=== PATIENT | female | born 1975 | race Caucasian/White ===

== ENCOUNTER → 2018-09-14 | Outpatient (CLI) | payer BC ==
[~2018-09-14] MED LIST: ACE3; ACE3 PO; CARB-91 PO; IBU600 PO; IBU800 PO; IRON1TAB55 PO; PREN-161 PO
--- NOTE | 2018-09-17 13:49 | RADIOLOGY IMAGING REPORT ---
FACILITY: [facility] PATIENT NAME: NICCI CORNELIUS : [id number] MR: [id number] V: [id number] EXAM DATE: ORDERING PHYSICIAN: RYAN TILLMAN TECHNOLOGIST: Betsy Hammer PROCEDURE: BILATERAL DIGITAL SCREENING MAMMOGRAM WITH CAD ASSISTED INTERPRETATION & 3D TOMOSYNTHESIS REASON FOR STUDY: Screening. COMPARISON: None. VIEWS OBTAINED: 2D & 3D full field CC & MLO. BREAST DENSITY: There are scattered areas of fibroglandular density. MAMMOGRAM FINDINGS: There is a cluster of microcalcifications in the Right breast, 8 o'clock position posterior 1/3 for depth. The Left breast demonstrates no suspicious mass, calcification, or architectural distortion. IMPRESSION: BIRADS 0: Incomplete. DIAGNOSTIC CATEGORY 0--INCOMPLETE: NEED ADDITIONAL IMAGING EVALUATION. RECOMMENDATIONS: ADDITIONAL MAMMOGRAPHIC VIEWS REQUIRED: RIGHT BREAST. TRUE MEDIAL LATERAL VIEW, WELL MAG CC AND MAG MLO VIEWS OF THE RIGHT BREAST. Dictated by: Aneudy Camp M.D. on 09/17/2018 at 8:58 Transcribed by: JEFFERY on 09/17/2018 at 9:56 Approved by: Aneudy Camp M.D. on 09/17/2018 at 13:46 [facility]
== END ==
LOC: MAMO 01:33
PROVIDERS: ATTEND Specialist
DX: R92.2 Inconclusive mammogram (principal)
CPT/HCPCS: 77063; 77067

== ENCOUNTER → 2018-10-11 | Outpatient (CLI) | payer BC ==
--- NOTE | 2018-10-16 14:26 | RADIOLOGY IMAGING REPORT ---
FACILITY: [facility] [place] PATIENT NAME: NICCI CORNELIUS : [id number] MR: [id number] V: [id number] EXAM DATE: [id number] ORDERING PHYSICIAN: RYAN TILLMAN TECHNOLOGIST: Jena Fagan PROCEDURE:RIGHT DIGITAL MAMMOGRAM DIAGNOSTIC WITH CAD ASSISTED INTERPRETATION & 3D TOMOSYNTHESIS REASON FOR STUDY: Follow-up. COMPARISON STUDIES: 09/14/2018. VIEWS OBTAINED: Right ML view as well as Spot magnification CC & Magnification MLO views. MAMMOGRAM FINDINGS: Follow-up from baseline mammogram of 09/14/2018 demonstrated a grouping of microcalcifications at the 8 o'clock position of the Right breast. The study demonstrates 2 separate groupings of calcifications. The grouping slightly medial and inferior of the 2 demonstrates a focal clustering of very fine punctuate and pleomorphic calcifications over an area of approximately 4mm. Just slightly lateral and superior is a second grouping of punctuate slightly pleomorphic calcifications which are in a more liner configuration for approximately 4mm. Several additional punctuate calcifications are seen somewhat deeper but not in a grouping are liner configuration. DIAGNOSTIC CATEGORY 4--SUSPICIOUS FOR MALIGNANCY. RECOMMENDATIONS: STEREOTACTIC BREAST BIOPSY OF THE 2 GROUPINGS OF CALCIFICATIONS IN THE INFERIOR MEDIAL ASPECT OF THE RIGHT BREAST AND THE SOMEWHAT SEGMENTAL FOCAL NATURE OF THESE CALCIFICATIONS WELL THE SLIGHT LINER CONFIGURATION OF THE LATERAL GROUPING. IMPRESSION: BIRADS 4: Suspicious for malignancy. Dictated by: Patrick Jain M.D. on 10/11/2018 at 17:28 Transcribed by: JEFFERY on 10/15/2018 at 9:53 Approved by: Patrick Jain M.D. on 10/16/2018 at 14:22 [facility]
== END ==
LOC: MAMO 01:22
PROVIDERS: ATTEND Specialist
DX: R92.8 Other abnormal and inconclusive findings on diagnostic imaging of breast (principal)
CPT/HCPCS: 77061; 77065

== ENCOUNTER → 2018-10-30 | Outpatient (CLI) | payer BC ==
[2018-10-30 11:40] LABS: INR 1.03
== END ==
LOC: LAB 10:15
PROVIDERS: ATTEND Specialist
DX: R92.8 Other abnormal and inconclusive findings on diagnostic imaging of breast (principal)
CPT/HCPCS: 36415; 85610

== ENCOUNTER → 2018-10-31 | Outpatient (CLI) | payer BC ==
[~2018-10-31] MED LIST changes: +NS 0.9% 250 ML BAG ONE
--- NOTE | 2018-11-02 12:05 | RADIOLOGY IMAGING REPORT ---
FACILITY: [facility] PATIENT NAME: NICCI CORNELIUS : [id number] MR: [id number] V: [id number] EXAM DATE: [id number] ORDERING PHYSICIAN: RYAN TILLMAN TECHNOLOGIST: Betsy Hammer PROCEDURE: STEREOTACTIC RIGHT BREAST BIOPSY COMPARISON: None. INDICATIONS: right breast calcifications inferior medial FINDINGS: Informed consent was obtained. The patient was placed prone on the Stereotactic biopsy table. Multiple stereo pair images of the Right breast were obtained however overlapping vessels could not be removed from the calcifications to allow for a safe Stereotactic biopsy therefore mammographically guided needle hookwire localization of these calcifications with surgical excision is recommended. These findings were discussed with the patient. DIAGNOSTIC CATEGORY 4--SUSPICIOUS FOR MALIGNANCY. RECOMMENDATIONS: SURGICAL BIOPSY COORDINATED WITH MAMMOGRAM HOOKWIRE LOCALIZATION: RIGHT BREAST. CONCLUSION: BIRADS 4: Suspicious for malignancy. Surgical biopsy coordinated with mammographic hookwire localization of the indeterminate calcifications in the medial inferior Right breast. Dictated by: Catina Rao M.D. on 10/31/2018 at 16:56 Transcribed by: JEFFERY on 11/01/2018 at 8:49 Approved by: Catina Rao M.D. on 11/02/2018 at 12:00 [facility]
== END ==
LOC: MAMO 01:43
PROVIDERS: ATTEND Specialist
DX: R92.8 Other abnormal and inconclusive findings on diagnostic imaging of breast (principal)
CPT/HCPCS: 19081; J7050